=== PATIENT | female | born 1950 | race Caucasian/White ===

== ENCOUNTER 2016-06-28 03:39 | Emergency (ER) | payer OTHER ==
[~2016-06-28] VITALS: Ht 162.6 cm; Wt 130.0 kg
[~2016-06-28 03:39] MED LIST: ADV25050 INH; ATOR10TA65 PO; BENA20TA48 PO; CALC-176 PO; CHOL2000 PO; CIPR500T4 PO; DABI150C PO; DIAZ-90 PO; DICL100G37 TOP; DILT240C80 PO; GABA300C PO; GLIP5TAB13 PO; HYD25 PO; HYDR-762 PO; IBUP-1542 PO; LORA0.5T PO; MAGN400T28 PO; METF500T4 PO; METO-448 PO; MONT10TA21 PO; OMEP40CA6 PO; OXYC-281 PO; POTA20TA8 PO; SERT100T PO; TIOT18CA IH; TRAZ100T15 PO
[2016-06-28 03:49] VITALS: Ht 162.6 cm; Wt 130.0 kg
--- NOTE | 2016-06-28 06:07 | RADRPT ---
PROCEDURE: XR Chest. CLINICAL INDICATION: Chest Pain. TECHNIQUE: Portable single view of the chest COMPARISON: 08/20/2015 FINDINGS: The heart size now appears slightly enlarged. No acute infiltrate, pleural effusion, or overt conge stive heart failure is seen. Degenerative change of the spine is seen. IMPRESSION: Possible new mild cardiomegaly. Otherwise stable exam. RPTAT: [facility] Mary Jane Jay Physician Date Time Electronically viewed and signed by Mary Jane Jay, Physician on 06/28/2016 06:06 MANUEL/
[2016-06-28 06:25] LABS: ADD SCAN DIFF NO
[2016-06-28] MEDS ORDERED: OXYCODONE/ACETAMINOPHEN (5/325) TAB PO ONE (06:30)
[2016-06-28 06:51] LABS: BASOPHILS % 0.1 % (0.0-2.0); HEMATOCRIT 35.7 % (37.0-47.0); HEMOGLOBIN 11.8 g/dl (12.0-16.0); LYMPHOCYTES # 0.8 10^3/ul (0.8-2.9); LYMPHOCYTES % 6.7 % (15.0-51.0); MEAN CORPUSCULAR HEMOGLOBIN 28.8 pg (29.0-33.0); MEAN CORPUSCULAR HGB CONC 33.1 g/dl (32.0-37.0); MEAN CORPUSCULAR VOLUME 87.1 fl (82.0-101.0); MEAN PLATELET VOLUME 10.4 fl (7.4-10.4); MONOCYTE # 0.6 10^3/ul (0.3-0.9); MONOCYTES % 5.2 % (0.0-11.0); NEUTROPHIL # 10.7 10^3/ul (1.6-7.5); NEUTROPHILS % 86.7 % (39.0-77.0); PLATELET COUNT 207 10^3/UL (140-415); RED CELL DISTRIBUTION WIDTH 13.8 % (11.5-14.5); WHITE BLOOD COUNT 12.3 10^3/ul (4.8-10.8)
[2016-06-28 06:53] LABS: INR 1.02; PROTIME 13.4 Sec (12.2-14.2)
[2016-06-28 06:54] LABS: PARTIAL THROMBOPLASTIN TIME 27.6 Sec (25.0-35.0)
[2016-06-28] MEDS ORDERED: DICLOFENAC SODIUM 37.5 MG/ML VIAL IV STA (07:11)
[2016-06-28 07:47] LABS: POTASSIUM 4.1 mmol/L (3.5-5.1)
[2016-06-28 07:49] LABS: CREATININE 0.98 mg/dl (0.44-1.00)
[2016-06-28 07:50] LABS: ALBUMIN/GLOBULIN RATIO 1.48; BILIRUBIN,INDIRECT 0.2 mg/dl (0-1.1); BILIRUBIN,TOTAL 0.2 mg/dl (0.2-1.3); CALCIUM 10.8 mg/dl (8.4-10.2); TOTAL PROTEIN 6.7 g/dl (6.1-8.1)
[2016-06-28 09:31] VITALS: BP 166/51; PULSE 54; RESP 18; TEMP 98.6
[2016-06-28] MEDS ORDERED: IBUP-1542 PO (09:36)
--- NOTE | 2016-06-28 09:49 | ERA ---
ER Documentation Chief Complaint Date/Time DATE: 06/28/16 TIME: 09:42 Chief Complaint chest pain x 2 days, HPI 65-year-old woman triaged for chest pain although her main complaint is full body aches including low back pain and bilateral lower extremity pain making it difficult for her to get up and walk around the house and use the toilet. She has a long history of chronic back pain and chronic pain syndrome and uses high doses of hydromorphone at home for pain control. She states she has a recent history of chest pain which was sharp, nonexertional nonradiating and a recent cardiac workup as an inpatient was unremarkable. She denies chest pain in the ED today, denies shortness of breath, no cough, no fevers or chills, no vomiting or diarrhea, no loss of bowel or bladder control. ROS All systems reviewed and are negative except as per history of present illness. Medications Home Meds Active Scripts Ibuprofen* (Motrin*) 600 Mg Tab, 600 MG PO Q8 for PAIN AND/OR INFLAMMATION, #30 TAB Prov:DENYS LUNA MD 06/28/16 Oxycodone Hcl-Acetaminophen* (Percocet*) 5-325 Mg Tablet, 1 TAB PO TID Y for PAIN, #8 TAB Prov:DENYS LUNA MD 08/20/15 Ibuprofen* (Motrin*) 600 Mg Tab, 600 MG PO TID, #30 TAB Prov:DENYS LUNA MD 08/20/15 Ciprofloxacin Hcl* (Ciprofloxacin Hcl*) 500 Mg Tablet, 500 MG PO BID for 7 Days , TAB Prov:DENYS LUNA MD 08/20/15 Ciprofloxacin Hcl* (Ciprofloxacin Hcl*) 500 Mg Tablet, 500 MG PO BID for 5 Days , TAB Prov:DENYS LUNA MD 08/20/15 Diazepam* (Valium*) 5 Mg Tablet, 5 MG PO Q8 Y for PAIN LEVEL 8-10, #10 TAB Prov:NATANAEL ENGLISH DO 01/18/15 Reported Medications Diclofenac Sodium* (Voltaren* Gel) 1% -100 Gm Gel, 4 GM TOP QID, TUB APPLY TO LOWER EXTREMITIES. DO NOT APPLY MORE THAN 16 GRAMS TO ANY ONE AFFECTED JOINT 01/18/15 Cholecalciferol* (Vitamin D3*) 2,000 Unit Cap, 2000 UNIT PO DAILY, CAP 01/18/15 Trazodone Hcl* (Trazodone Hcl*) 100 Mg Tablet, 100 MG PO HS, TAB 01/18/15 Tiotropium Comfrey* (Spiriva*) 18 Mcg Cap.w.dev, 1 INH IH DAILY, EA 01/18/15 Montelukast Sodium* (Singulair*) 10 Mg Tablet, 10 MG PO HS, TAB 01/18/15 Sertraline Hcl* (Zoloft*) 100 Mg Tablet, 150 MG PO DAILY, TAB 01/18/15 Dabigatran Etexilate Mesylate* (Pradaxa*) 150 Mg Capsule, 150 MG PO BID, CAP 01/18/15 Potassium Chloride* (Klor-Con*) 10 Meq Tabsr, 10 MEQ PO DAILY, TAB.SA 01/18/15 Hydrocodone Bit-Acetaminophen* ([place]*) 10-325 Mg Tablet, 1-2 TAB PO Q4-6 HOURS Y for PAIN, TAB 01/18/15 Omeprazole* (Omeprazole*) 40 Mg Capsule.dr, 40 MG PO DAILY, CAP 01/18/15 Metoprolol Tartrate* (Lopressor*) 25 Mg Tab, 37.5 MG PO BID, TAB 01/18/15 Metformin* (Glucophage*) 500 Mg Tab, 500 MG PO BID WITH MEALS, TAB 01/18/15 Magnesium Oxide* (Magnesium Oxide*) 400 Mg Tablet, 400 MG PO DAILY, TAB 01/18/15 Hydrochlorothiazide* (Hydrochlorothiazide*) 25 Mg Tab, 25 MG PO DAILY, TAB 01/18/15 Glipizide* (Glipizide*) 5 Mg Tablet, 5 MG PO BID, TAB 01/18/15 Gabapentin* (Neurontin*) 300 Mg Capsule, 300 MG PO BID, CAP 01/18/15 Diltiazem Hcl (Diltiazem Er) 240 Mg Capsule.sa, 240 MG PO DAILY, CAP 01/18/15 Calcium Cmb 2-Mag Cmb 12-Vit D3 (Calcium 500) 1 Each Tablet, 1 TAB PO BID, TAB 01/18/15 Benazepril Hcl* (Benazepril Hcl*) 20 Mg Tablet, 20 MG PO BID, TAB 01/18/15 Atorvastatin Calcium (Atorvastatin Calcium) 10 Mg Tab, 10 MG PO HS, TAB 01/18/15 Lorazepam* (Lorazepam*) 0.5 Mg Tablet, 0.5 MG PO HS Y for ANXIETY, TAB 01/18/15 Salmeterol Xinaf/Fluticasone* (Advair*) 250-50 Diskus Inhaler, 1 INH INH BID, INH 01/18/15 Allergies Allergies: Coded Allergies: Tetanus Vaccines & Toxoid (Verified Allergy, Unknown, 01/18/15) amoxicillin (Verified Allergy, Unknown, 01/18/15) PMhx/Soc Chronic recurrent pain syndrome, hernia, hypertension, asthma History of Surgery: Yes (TUBAL LIGATION, EXPLORATORY LAP) Anesthesia Reaction: No Hx Neurological Disorder: No Hx Respiratory Disorders: Yes (COPD, ASTHMA) Hx Cardiac Disorders: Yes (HTN) Hx Psychiatric Problems: No Hx Miscellaneous Medical Probl: Yes (DM,HIGH CHOLESTEROL, herniated disk S1-L5) Hx Alcohol Use: No Hx Substance Use: No Hx Tobacco Use: No Smoking Status: Never smoker FmHx Family History: No diabetes Physical Exam Vitals Vital Signs Date Time Temp Pulse Resp B/P Pulse Ox O2 Delivery O2 Flow Rate FiO2 06/28/16 09:31 98.6 54 18 166/51 98 Room Air 06/28/16 08:27 98.6 52 18 140/73 98 Room Air 06/28/16 05:15 98.0 63 18 177/66 98 Room Air 06/28/16 03:49 98.3 68 20 140/76 96 Physical Exam GENERAL: Well-developed, well-nourished, dehydrated, in mild discomfort HEENT: Dry mucous membranes, pink conjunctiva, no cervical spine tenderness or step-off deformities, no goiter, no jaundice or icterus, extraocular movements intact without pain. No submandibular induration, and no pharyngeal erythema NEURO: Alert and oriented 3, cranial nerves II through XII intact bilaterally, pupils equal round reactive to light, no focal deficits or facial asymmetry, sensation intact distally Strength 5/5 in upper and lower extremities bilaterally CARDIAC: Regular rate and rhythm, no murmurs rubs or gallops LUNGS: Clear bilaterally no wheezing crackles or stridor ABDOMEN: Soft nontender, no guarding, no rigidity, no rebound, no psoas sign no obturator sign. Normoactive bowel sounds SKIN: Warm and dry to touch, no abrasions, contusions, or hematomas, no lacerations, no ecchymosis, no target lesions, and without ulcers EXTREMITIES: No clubbing cyanosis or edema, calves are bilaterally symmetrical, no Homans sign, no popliteal cord sign. Distal pulses equal and bilateral PSYCH: Normal affect without agitation or irritability Result Diagram: 06/28/1640 06/28/16 0540 Results 24 hrs Laboratory Tests Test 06/28/16 05:40 Activated Partial Thromboplast Time 27.6Sec Alanine Aminotransferase (ALT/SGPT) 19IU/L Albumin 4.0g/dl Albumin/Globulin Ratio 1.48 Alkaline Phosphatase 70IU/L Anion Gap 17 Aspartate Amino Transf (AST/SGOT) 21IU/L Basophils # 0.010^3/ul Basophils % 0.1% Blood Urea Nitrogen 25mg/dl Calcium Level 10.8mg/dl Carbon Dioxide Level 23mmol/L Chloride Level 107mmol/L Creatinine 0.98mg/dl Direct Bilirubin 0.00mg/dl Eosinophils # 0.010^3/ul Eosinophils % 0.0% Globulin 2.70g/dl Glucose Level 228mg/dl Hematocrit 35.7% Hemoglobin 11.8g/dl INR International Normalized Ratio 1.02 Indirect Bilirubin 0.2mg/dl Lipase 28U/L Lymphocytes # 0.810^3/ul Lymphocytes % 6.7% Mean Corpuscular Hemoglobin 28.8pg Mean Corpuscular Hemoglobin Concent 33.1g/dl Mean Corpuscular Volume 87.1fl Mean Platelet Volume 10.4fl Monocytes # 0.610^3/ul Monocytes % 5.2% Neutrophils # 10.710^3/ul Neutrophils % 86.7% Nucleated Red Blood Cells # 0.010^3/ul Nucleated Red Blood Cells % 0.0/100WBC Platelet Count 40004^3/UL Potassium Level 4.1mmol/L Prothrombin Time 13.4Sec Prothrombin Time Ratio 1.0 Red Blood Count 4.1010^6/ul Red Cell Distribution Width 13.8% Sodium Level 143mmol/L Total Bilirubin 0.2mg/dl Total Protein 6.7g/dl Troponin I 0.020ng/ml White Blood Count 12.310^3/ul Current Medications Medications (Trade) Dose Ordered Sig/Yenifer Route PRN Reason Start Time Stop Time Status Last Admin Dose Admin Oxycodone/ Acetaminophen (Percocet (5/ 325)) 1 tab ONCE ONCE PO 06/28/16 06:30 06/28/16 06:31 DC 06/28/16 07:24 Diclofenac Sodium (Dyloject) 37.5 mg ONCE STAT IV 06/28/16 07:11 06/28/16 07:12 DC 06/28/16 07:24 Ibuprofen (Motrin) 600 mg ONCE ONCE PO 06/28/16 10:00 06/28/16 10:00 DC 06/28/16 09:40 Procedures/MDM IV line was established patient was placed on manager cardiac rhythm strip revealed a sinus rhythm at about 60 bpm with upright P and T waves. Patient was afebrile. Chest X-ray 1V Interpreted by me: Soft Tissue: No acute abnormalities Bones: No acute abnormalities Mediastinum/Cardiac Silhouette/Lungs: No acute abnormalities EKG performed, read by me revealed a normal sinus rhythm at 64 bpm, normal axis , narrow QRS complex, no concerning ST elevations or depressions noted. computer networker was consulted from the emergency department and I attempted placement at a boarding care facility or residential per the patient's and her 's wishes. Her main issue today was chronic recurrent low back and hip pain making it difficult for her to go to the bathroom and walk around the house. She feels she cannot take care of herself very well at home and feels her is having trouble taking care of her. So we contacted her health insurance provider and gave them her contact information to help facilitate transfer and placement to some sort of outpatient nursing facility, or even to arrange for home visiting nurse. For pain control I administered diclofenac 38 mg IV 1, ibuprofen 600 mg p.o., and Percocet 1 tablet p.o. CBC was unremarkable, electrolytes revealed dehydration with a BUN/creatinine of 25/1, liver function tests were normal, troponin was negative. Patient left the emergency department and was discharged prior to transfer finalization. Differential diagnoses considered, included but not limited to acute coronary syndrome, pulmonary embolism, aortic dissection, abdominal aortic aneurysm, sepsis, stroke, meningitis, encephalitis, pneumonia, appendicitis, cholecystitis , bowel obstruction, pyelonephritis, nephrolithiasis, cystitis, as well as metabolic, hematologic, and electrolyte abnormalities. As well as abscess, cellulitis, fractures, and dislocations. Patient feels much better at this time, and vital signs are normal, symptoms have improved. I did give strict instructions to return to the ED if symptoms continue or worsen, patient will otherwise follow-up with primary care physician. Patient understood instructions and agreed to plan. Departure Diagnosis: Primary Impression: Chronic pain Qualified Code: G89.29 - Other chronic pain Additional Impression: Dehydration Condition: Good Patient Instructions: Chronic Pain DENYS LUNA MD Jun 28, 2016 09:49
[2016-06-28] MEDS ORDERED: IBUPROFEN 600 MG TAB PO ONE (10:00)
== END 2016-06-28 09:53 | disposition home or self-care (01) ==
LOC: E/R 03:39
DX: G89.29 Other chronic pain (principal); E86.0 Dehydration; E11.9 Type 2 diabetes mellitus without complications; I10 Essential (primary) hypertension; J44.9 Chronic obstructive pulmonary disease, unspecified; Z79.84 Long term (current) use of oral hypoglycemic drugs
CPT/HCPCS: 36415; 71010; 80053; 83690; 84484; 85025; 85610; 85730; 96374